=== PATIENT | male | born 1950 | race Caucasian/White ===

== ENCOUNTER → 2018-08-08 | Outpatient (CLI) | payer OTHER, MEDICARE ==
[~2018-08-08] MED LIST: ASPI-630 PO; OMEG1CAP30 PO; SIMV10TA3 PO
--- NOTE | 2018-08-08 12:21 | RAD ---
MR#: [id number] Date of Study: 08/08/2018 Ordering Physician: JORDANA CURRY Referring Physician: JAVON LOPEZ Tech: APPROVED REPORT Test Type: Exercise Stress Nurse/Tech: Court Lujan R.N. Test Indications: chest discomfort Cardiac History: High cholesterol Medications: See Electronic Medical Record Medical History: See Electronic Medical Record Resting ECG: NSR Resting Heart Rate: 73 bpm Resting Blood Pressure: 129/65mmHg Pretest Chest Pain: No chest pain Nurse/Tech Notes S1S2, lungs sound clear Consent: The procedure was explained to the patient in lay terms. Informed consent was witnessed. Jose Alfredo eout was entered into [employer]. History and Stress Test performed by Court Lujan R.N. Stress Symptoms No chest pain or symptoms. POST EXERCISE Reason for Termination: Reached target heart rate Target HR: 129 Max HR: 152 bpm Exercise duration: 9 min min:sec, 3 Stage Max Blood Pressure: 180/90mmHg Blood Pressure response to exercise: Normal blood pressure response during stress. Arrhythmia: No. ST Change: Yes. st elevation in v leads INTERPRETATION Stress EKG Conclusion: Mildly abnormal EKG with upsloping anterolateral ST segment depression of 1 to 1.2 mm Conclusion 1. Normal resting EKG 2. Adequate stress load with 10 Mets achieved. 3. Normal BP/HR response. 4. Stress EKG mildly abnormal with anterolateral ST segment depression of approximately 1 mm w/o clin ical symptoms. 5. Low risk study with Martinez Treadmill score of 4-5. Signed by : Abdelrahman Donald, Electronically Approved : 08/08/2018 12:20:15
== END | disposition home or self-care (01) ==
LOC: NM 07:34
PROVIDERS: ATTEND Family Medicine
DX: R07.89 Other chest pain (principal); E78.00 Pure hypercholesterolemia, unspecified; Z79.01 Long term (current) use of anticoagulants
CPT/HCPCS: 93017

== ENCOUNTER → 2018-08-16 | Day surgery (SDC) | payer MEDICARE, OTHER ==
[~2018-08-16] MED LIST changes: +HYDROmorphone 2 MG/ML VIAL IV PRN; +IV RINGERS,LACTATED 1000ML 1,000 ML IV SCH; +LIDOCAINE 1% PF 2 ML VIAL. ID PRN; +MORPHINE SULFATE 4 MG/ML VIAL. IV PRN; +ONDANSETRON PF 4 MG/2 ML VIAL. IV PRN; +PROCHLORPERAZINE 10 MG/2 ML VIAL. IV PRN; +PROPOFOL 40 ML IV ONE; +fentaNYL PF VIAL 100 MCG/2 ML VIAL IV PRN
[2018-08-16 14:30] VITALS: BP 134/73
== END | disposition home or self-care (01) ==
LOC: SURG 12:05
PROVIDERS: ATTEND Surgery
DX: Z12.11 Encounter for screening for malignant neoplasm of colon (principal); M19.90 Unspecified osteoarthritis, unspecified site; Z87.891 Personal history of nicotine dependence; Z72.89 Other problems related to lifestyle; Z79.82 Long term (current) use of aspirin; Z79.899 Other long term (current) drug therapy; Z98.890 Other specified postprocedural states
CPT/HCPCS: 45378; J2704

== ENCOUNTER → 2020-12-22 | Day surgery (SDC) | payer OTHER ==
[~2020-12-22] VITALS: Ht 175.3 cm; Wt 175.0 kg
[~2020-12-22] MED LIST changes: -HYDROmorphone 2 MG/ML VIAL IV PRN; -LIDOCAINE 1% PF 2 ML VIAL. ID PRN; +LIDOCAINE 2% PF 5 ML VIAL. ONE; -MORPHINE SULFATE 4 MG/ML VIAL. IV PRN; -ONDANSETRON PF 4 MG/2 ML VIAL. IV PRN; -PROCHLORPERAZINE 10 MG/2 ML VIAL. IV PRN; +PROPOFOL 10 MG/ML (20ML) VIAL. IV ONE; -PROPOFOL 40 ML IV ONE; +SIMV10TA15 PO; -SIMV10TA3 PO; -fentaNYL PF VIAL 100 MCG/2 ML VIAL IV PRN
[2020-12-22 06:44] VITALS: BP 137/71
[2020-12-22 07:40] VITALS: BP 122/66
--- NOTE | 2020-12-24 14:10 | PATHOLOGY ---
[facility] Accession Number: [id number] . 01 Material submitted: . esophagus - DISTAL ESOPHAGUS BIOPSY. Modifiers: distal . 01 Clinical history: . CHRONIC COUGH EGD . 02 Diagnosis: Esophageal biopsies, distal esophagus: - Reflux esophagitis. . (JPM:mm; 12/24/2020) [facility] 12/24/2020 0926 Local . 02 Comment: Sections of the distal esophageal biopsy reveal segments of tangentially-oriented, hyperplastic squamous esophageal mucosa. The findings are consistent with reflux esophagitis. There is no evidence of Davalos's change, dysplasia, or malignancy. . (JPM:mml; 12/24/2020) . 02 Electronically signed: . Danial Hinojosa MD, Pathologist NPI- [id number] . 01 Gross description: . The specimen is received in formalin, labeled "Alex Chintan", "distal esophagus biopsy". Received are multiple segments of pale white-quintero soft tissue, ranging in size from 0.1 cm to 0.4 cm. The specimen is entirely submitted in cassette A1. ([facility]; 12/23/2020) [facility] 12/23/2020 0823 Local . 02 Pathologist provided ICD-10: K21.00 . 02 CPT . 786428 Specimen Comment: A courtesy copy of this report has been sent to [phone] Specimen Comment: Report sent to Performed at: 01 [facility] [address] [facility] [address], [place] [id number] MD Cody Ramos MD Phone: [phone] Performed at: 02 [facility] [address] [place], [place] [id number] MD Danial Hinojosa MD Phone: [phone]
== END | disposition home or self-care (01) ==
LOC: SURG 06:09
PROVIDERS: ATTEND Internal Medicine Gastroenterology
DX: R05 Cough (principal); K21.00 Gastro-esophageal reflux disease with esophagitis, without bleeding; K31.89 Other diseases of stomach and duodenum; E78.00 Pure hypercholesterolemia, unspecified; G47.30 Sleep apnea, unspecified; E66.9 Obesity, unspecified; M19.90 Unspecified osteoarthritis, unspecified site; Z87.891 Personal history of nicotine dependence; Z79.82 Long term (current) use of aspirin; Z79.899 Other long term (current) drug therapy; Z98.890 Other specified postprocedural states; Z72.89 Other problems related to lifestyle
CPT/HCPCS: 43239; 88305; J2704